=== PATIENT | female | born 2000 | race Caucasian/White ===

== ENCOUNTER 2023-04-11 10:30 | Outpatient (CLI) | payer OTHER | END 2023-04-11 10:35 | disposition home or self-care (01) | LOC: LAB 10:30 | DX: Z02.1 Encounter for pre-employment examination (principal) ==

== ENCOUNTER 2023-09-22 15:33 | Emergency (ER) | payer OTHER ==
[~2023-09-22] VITALS: Ht 157.5 cm; Wt 99.8 kg
== END 2023-09-22 17:38 | disposition home or self-care (01) ==
LOC: ER 15:33
DX: J03.80 Acute tonsillitis due to other specified organisms (principal)